=== PATIENT | female | born 1975 | race Caucasian/White ===

== ENCOUNTER 2016-04-23 12:05 | Day surgery (SDC) | payer OTHER ==
[~2016-04-23] VITALS: Ht 170.2 cm; Wt 81.7 kg
[~2016-04-23 12:05] MED LIST: 0.9% Sodium Chloride 1,000 ML IV SCH; ACYC400T2 PO; FLUO20CA25 PO; fentaNYL-PF 50 mCg/mL 2 mL Inj IVPUSH PRN
[2016-04-23 12:32] VITALS: BP 120/76; PULSE 62; RESP 16; O2SAT 95
[2016-04-23] MEDS ORDERED: ESTR100P26 MC (12:32)
[2016-04-23] MEDS ORDERED: PROG100C6 PO (12:32)
[2016-04-23 14:16] VITALS: BP 110/61; PULSE 51; RESP 14; O2SAT 97
[2016-04-23 14:26] VITALS: BP 109/69; PULSE 51; RESP 14; O2SAT 96
--- NOTE | 2016-04-23 14:33 | ENDO ---
[address] [address] ENDOSCOPY PROCEDURE PATIENT: ISRAEL NEWTON : 1975 MR#: [id number] ADMIT: 04/23/2016 JOB ID: [id number] DATE OF SERVICE: 04/23/2016 PREPROCEDURAL DIAGNOSIS: Hematochezia. POSTPROCEDURAL DIAGNOSES: 1. Hematochezia. 2. Rectal polyp. PROCEDURE PERFORMED: Colonoscopy with snare polypectomy. SURGEON: Rosalee Ervin MD. HISTORY OF PRESENT ILLNESS: This is a 41-year-old woman with a history of hemorrhoidal disease. Her primary symptom is intermittent perianal bleeding. She has had banding of hemorrhoids and was partially responsive to this, but had ongoing bleeding. Therefore, colonoscopy was recommended to rule out other sources of bleeding. FINDINGS: She had a single rectal polyp, 2 cm in diameter, at 11 cm from the rectal verge. It was removed entirely with use of snare cautery x2. INSTRUMENT: Colonoscope PCF-H180AL, Olympus. MEDICATIONS: 1. Versed 4 mg. 2. Fentanyl 100 mcg. WITHDRAWAL TIME: 31 minutes. PREP: Excellent. DESCRIPTION OF PROCEDURE: The patient was brought to the procedure suite and placed in left lateral decubitus position. Moderate sedation was induced. A digital rectal examination was performed and was normal. The endoscope was advanced to the cecum, which was identified by the terminal ileum, and appendiceal orifice. It was advanced into the terminal ileum. Ten centimeters of terminal ileum was visualized and was normal. There was a single polyp at 11 mm from the anal verge, 2 cm in diameter, which required two passes of snare cautery to remove in its entirety. This was removed with a Peterson net. There were no other masses, strictures, or mucosal abnormalities. The patient tolerated the procedure well. FINDINGS: Rectal polyp, 11 cm from the anal verge, sent for final pathology, completely excised. COMPLICATIONS: None. ESTIMATED BLOOD LOSS: None. MTDD
[2016-04-23 14:36] VITALS: BP 105/69; PULSE 51; RESP 14; O2SAT 97
[2016-04-23 14:44] VITALS: BP 106/64; PULSE 67; RESP 16; O2SAT 96
--- NOTE | 2016-04-27 17:22 | PATH ---
SURGICAL PATHOLOGY Attending Physician:Rosalee Ervin MD CASE STATUS: Signed Out PATIENT NAME: ISRAEL NEWTON PID: [id number] : 1975 DATE COLLECTED:04/23/2016 00:00 SPECIMEN: Rectum, Biopsy CLINICAL HISTORY: 1). RECTAL POLYP FINAL DIAGNOSIS: 1.RECTUM, POLYP, BIOPSY: TUBULOVILLOUS ADENOMA. No evidence of malignancy or high-grade dysplasia. ICD10 code D12.8 GROSS DESCRIPTION: Received in formalin, labeled with the patient' s name and "rectal polyp", are two fragments of gonzalez, soft tissue ranging in size from 0.1 x 0.1 x 0.1 cm to 0.6 x 0.5 x 0.4 cm. The larger fragment is divided, and all fragments are totally submitted in one cassette. ([id number]) MICRO DESCRIPTION: See diagnosis. ICD-9 CODES: CPT CODES: 1: 87518 Electronically Signed Out Yareli Centeno MD [facility] [address], [place] [address] Technical component performed at [employer], [facility] [address], [place], [address]
== END 2016-04-23 23:59 | disposition home or self-care (01) ==
LOC: END 12:05
PROVIDERS: ATTEND Surgery
DX: D12.8 Benign neoplasm of rectum (principal); K64.1 Second degree hemorrhoids; Z79.890 Hormone replacement therapy
CPT/HCPCS: 45385; 99153; G0500; J2250; J3010; J7030